=== PATIENT | male | born 1980 | race African-American/Black ===

== ENCOUNTER 2023-12-10 13:32 | Emergency (ER) | payer MEDICAID ==
[~2023-12-10] VITALS: Ht 180.3 cm; Wt 104.3 kg
[2023-12-10 13:38] VITALS: BP_SYST 126; PULSE 61; RESP 18; TEMP 97.1; O2SAT 99
[2023-12-10 14:24] LABS: BASOPHILS % (AUTO) 0.3 % (0.0-2.0); EOSINOPHILS % (AUTO) 0.5 % (0.0-4.0); HEMATOCRIT 37.2 % (36-54); HEMOGLOBIN 12.7 g/dL (14.0-18.0); LYMPHOCYTES # (AUTO) 0.9 K/uL (1.0-5.5); LYMPHOCYTES % (AUTO) 18.6 % (20.5-51.5); MEAN CORPUSCULAR HEMOGLOBIN 30 pg (27-31); MEAN CORPUSCULAR HGB CONC 34 % (32-36); MEAN CORPUSCULAR VOLUME 89 fL (79.0-98.0); MONOCYTES # (AUTO) 0.3 K/uL (0.0-1.0); MONOCYTES % (AUTO) 6.9 % (1.7-9.3); NEUTROPHILS # (AUTO) 3.6 K/uL (1.8-7.7); NEUTROPHILS % (AUTO) 73.7 % (40.0-70.0); PLATELET COUNT (AUTO) 254 K/uL (130-430); RED CELL DISTRIBUTION WIDTH 13.8 % (9.0-15.0); WHITE BLOOD COUNT (AUTO) 4.9 K/uL (4.8-10.8)
[2023-12-10 14:31] LABS: CALCIUM 8.9 mg/dL (8.4-11.0); CREATININE 1.23 mg/dL (0.55-1.30); POTASSIUM 4.1 mmol/L (3.5-5.1)
[2023-12-10 14:36] LABS: BILIRUBIN,DIRECT 0.8 mg/dL (0.0-0.3); TOTAL BILIRUBIN 1.7 mg/dL (0.0-1.0)
[2023-12-10 14:40] LABS: BILIRUBIN,URINE 1+ (NEGATIVE); CLARITY/URINE CLEAR (CLEAR); COLOR,URINE YELLOW (YELLOW); GLUCOSE,URINE NEGATIVE (NEGATIVE); KETONES,URINE NEGATIVE (NEGATIVE); LEUKOCYTE ESTERASE ,URINE NEGATIVE (NEGATIVE); NITRITE, URINE NEGATIVE (NEGATIVE); PROTEIN URINE NEGATIVE (NEGATIVE)
[2023-12-10 15:02] LABS: BLOOD, URINE TRACE (NEGATIVE); UROBILINOGEN,URINE >=8 (0.2-1.0)
[2023-12-10 15:05] LABS: BACTERIA,URINE RARE /HPF (None Seen); RBC,URINE 0-3 /HPF (0-3); WBC,URINE NONE SEEN /HPF (0-3)
[2023-12-10 15:06] LABS: MUCUS,URINE None Seen /LPF (None Seen)
[2023-12-10] MEDS ORDERED: IBUP-1971 PO (15:49)
[2023-12-10] MEDS ORDERED: HYDR-3917 PO (15:49)
[2023-12-10] MEDS ORDERED: ONDA-8 TL (15:49)
[2023-12-10] MEDS: KETOROLAC TROMETHAMINE 60 MG/2 ML VIAL IM ONE (16:07)
[2023-12-10 18:00] VITALS: BP_SYST 126; PULSE 61; RESP 18; TEMP 97.1; O2SAT 99
== END 2023-12-10 16:05 | disposition home or self-care (01) ==
LOC: SED 13:32
DX: K80.50 Calculus of bile duct without cholangitis or cholecystitis without obstruction (principal); R10.9 Unspecified abdominal pain; R11.0 Nausea; Z79.899 Other long term (current) drug therapy
CPT/HCPCS: 99283; 80076; 80048; 81001; 83690; 85025; 84484; 36415; 96372; 83605; 82397; 81000; 81015; J1885